=== PATIENT | female | born 1990 | race Caucasian/White ===

== ENCOUNTER 2017-01-10 22:51 | Emergency (ER) | payer OTHER ==
[~2017-01-10] VITALS: Ht 152.4 cm; Wt 54.0 kg
[2017-01-10 22:59] VITALS: Ht 152.4 cm; Wt 54.0 kg
== END 2017-01-11 02:19 | disposition left against medical advice (07) ==
LOC: FTE 22:51 → E/R 01-11 02:19
DX: Z53.21 Procedure and treatment not carried out due to patient leaving prior to being seen by health care provider (principal)